=== PATIENT | female | born 1995 | race Caucasian/White ===

== ENCOUNTER 2017-12-12 04:52 | Emergency (ER) | payer OTHER, SELFPAY ==
[2017-12-12 04:55] VITALS: BP 164/99; PULSE 95; RESP 18; TEMP 36.8; O2SAT 97; BMI 46.5
--- NOTE | 2017-12-12 05:04 | CT_ITS ---
STUDY: CT ABDOMEN AND PELVIS WITHOUT CONTRAST REASON FOR EXAM: Female, 22 years old. Left-sided abdominal pain RADIATION DOSAGE (If Supplied By Facility): CTDIvol = ( 23.38 ) mGy, DLP = ( 1273.20 ) mGycm TECHNIQUE: Transaxial 2.5 mm images were obtained from the dome of the diaphragm to the symphysis pubis without oral contrast, and without intravenous contrast. Sagittal and coronal images were reconstructed. This examination is limited for the evaluation of gastrointestinal, solid organs and vascular structures due to the lack of intravenous and oral contrast. There is obesity, the entirety of soft tissue is not imaged. Individualized dose optimization techniques were used for this CT. COMPARISON: None. FINDINGS: The visualized lung bases are unremarkable. The visualized portions of the heart are within normal limits. There is decreased attenuation of the enlarged liver consistent with steatosis. Measures craniocaudal 22 cm, spleen AP 15.3 cm. Normal gallbladder and extrahepatic biliary system. There is mild splenomegaly. Normal pancreas. Normal bilateral adrenal glands. Normal right kidney. Normal left kidney. There is no obstructive uropathy, obstructive renal or ureteral calculi. Normal visualized stomach. Normal small intestine. Decompressed colon. The appendix is visualized and appears normal. Normal abdominal aorta. Normal inferior vena cava. Normal retroperitoneum. Normal urinary bladder. Complex cystic lesion of at least 7.7 x 5.3 x 5.5 cm in midline and right along the right adnexa with a more cystic low-attenuation of 4.3 x 5.3 x 4 cm.. Small uterus may be deviated to the left. What is seen of the adnexal appears hypoattenuated, with cystic lesions seen in the left adnexa. Normal abdominal wall. Normal osseous structures. CT/Abdomen/Pelvis without Cont IMPRESSION: Complex pelvic cystic lesions in midline as well as the left adnexa. Uterus and may be deviated to the left. Further detail with pelvic ultrasound transabdominal and transvaginal approach is recommended as neoplastic etiology cannot be excluded. There is no appendicitis, colitis, diverticulitis, ascites, abscess, collection, perforation or obstruction. Hepatosplenomegaly and hepatic steatosis. Obesity. Electronically Signed: Kina Agarwal MD at 7:07 EDT , Service support ,
[2017-12-12] MEDS: Ondansetron 4 MG/2 ML Vial IV ×2 (05:10→10:35)
[2017-12-12] MEDS: Morphine 4 MG/ML Syringe IV ×2 (05:10→06:38)
[2017-12-12] MEDS: Ketorolac 30 MG/ML Syringe IV (05:10)
[2017-12-12] MEDS: 0.9% Normal Saline 1,000 ML 250 ML IV (05:10)
--- NOTE | 2017-12-12 05:20 | ED.VISSUMM ---
- ER Visit Summary Date of Service: 12/12/17 Chief Complaint: Abdominal pain History of Present Illness: The patient is a [address] Mark Anthony [facility]. She reports that 3:00 this morning she had abrupt onset of left-sided abdominal pain. It is a sharp, cramping pain senna 10 worsening a 10 currently. Is worsened by nothing relieved by nothing. She reports is been nausea and vomited 4 times. No blood or emesis. Last bowel was today. No melena or hematochezia. No dysuria frequency. Last menstrual period was 2-3 weeks ago. No vaginal bleeding or discharge. She denies any flank pain. Physical Examination: Vitals: Stable. Afebrile. General: Well-nourished and well-developed. Head: Normocephalic atraumatic. Neck: Supple, no lymphadenopathy. No JVD. Nontender. Cardiovascular: Regular rate and rhythm. No murmurs. Respiratory: No respiratory distress. Clear to auscultation bilaterally. Abdominal: Soft, mild left upper quadrant and left lower quadrant tenderness to palpation, nondistended, normal bowel sounds. No guarding, rebound, or peritoneal signs. Back: Nontender. No CVA tenderness. Extremities: Nontender, no edema. Skin: Normal color, no rash. Neurologic: Alert and oriented ?3. Cranial nerves II through XII are intact. Normal strength and sensation. Psych: Normal affect. Test Results: test is negative. UA is negative. Clinical Impression(s) from Imaging Studies Abdomen/Pelvis CT 12/12/17 05:04 IMPRESSION: Complex pelvic cystic lesions in midline as well as the left adnexa. Uterus and may be deviated to the left. Further detail with pelvic ultrasound transabdominal and transvaginal approach is recommended as neoplastic etiology cannot be excluded. There is no appendicitis, colitis, diverticulitis, ascites, abscess, collection, perforation or obstruction. Hepatosplenomegaly and hepatic steatosis. Obesity. Electronically Signed: Kina Agarwal MD at 7:07 EDT , Service support , Emergency Department Course and Treatment: Patient had an IV placed. She was given morphine, Toradol, and Zofran IV. She is resting comfortably. Transvaginal ultrasound was ordered to further assess this left adnexal cystic lesion. Treatment Plan: Patient will be turned over the care of the oncoming physician to follow-up on this. She will be instructed to follow-up with Dr. Engel for further evaluation and treatment. Disposition: Pending Impression: 1. Left ovarian cyst. This note was generated with [employer] dictation software. It may contain incorrect words, spelling, and punctuation that were not noted in review of the chart prior to signing ED Disposition - Plan for ED Patient: Chief Complaint: Abd Pain Instructions: ED Cyst Ovarian Referrals: Manisha Clark MD [STAFF PHYSICIAN] -
[2017-12-12 06:03] LABS: Pregnancy, Serum, hCG Quali. NEGATIVE Negative (0-9 Nonpreg)
[2017-12-12 06:21] LABS: Mucous, Urine 0 SEEN /hpf (<or=2+); Red Blood Cells-Urine 0 SEEN /hpf (0-5)
[2017-12-12 06:27] LABS: Color, Urine Yellow (Yellow); Glucose, Dipstick Normal (Normal); Ketone-Dipstick Negative (Negative); Leukocyte Esterase-Dipstick 100 /ul (Negative); Nitrite-Dipstick Negative (Negative); Occult Blood-Urine Negative /ul (Negative); Protein-Dipstick 15 mg/dl (Negative); Specific Gravity, Urine 1.015 (1.002-1.030); Urine Bilirubin Dipstick Negative (Negative); Urine Clarity Clear (Clear); Urine Urobilinogen Normal (Normal); Urine pH 6.5 (5.0 - 8.0)
[2017-12-12 06:35] LABS: Bacteria 1+ /hpf (None Seen); Squamous Epithelial Cells - UA 0-5 SEEN /hpf (5-10); White Blood Cells 0-5 SEEN /hpf (0-5)
--- NOTE | 2017-12-12 07:10 | US_ITS ---
STUDY: ULTRASOUND TRANSVAGINAL CLINICAL: Female, 22 years old. Left lower quadrant pain TECHNIQUE: Transvaginal COMPARISON: CT 12/12/2017 FINDINGS: Normal uterine size measuring 7.1 cm in maximal craniocaudal dimension. There are no myometrial masses. The uterus is deviated towards the left. Normal endometrial thickness measuring 6 mm. There are no endometrial masses, and there is no fluid in the endometrial cavity. Normal uterine cervix. Normal right ovary, measuring 3.2 x 2.7 x 2.1 cm. There are multiple follicles without a dominant cyst. There is a complex mass within the left ovary which extends to the midline. Normal left ovarian tissue is not well visualized. The left ovarian/adnexal mass measures approximately 7.6 x 7.3 x 5 cm. There appears to be a complex cystic component to this region. Question hemorrhagic cyst or endometrioma. There is no internal vascularity. Some flow is seen in the periphery of this lesion. There is a small amount of free fluid within the pelvis. US/Transvaginal Non- IMPRESSION: Large complex left adnexal mass, which is partially cystic. Question hemorrhagic cyst or endometrioma. Due to the size of this lesion, consultation with gynecology is recommended. Electronically Signed: Terrance Riggs DO at 8:52 EDT Tel , Service support ,
--- NOTE | 2017-12-12 09:52 | ED.DEP ---
ED Disposition - Plan for ED Patient: Chief Complaint: Abd Pain Instructions: ED Cyst Ovarian Prescriptions: Oxycodone HCl/Acetaminophen [Percocet 5/325] 1 tab PO Q6H PRN PRN 3 Days #12 tab PRN Reason: Pain Ondansetron [Zofran Odt] 4 mg PO Q8H PRN PRN #10 tab PRN Reason: Nausea Referrals: Manisha Clark MD [STAFF PHYSICIAN] -
== END 2017-12-12 10:37 | disposition home or self-care (01) ==
PROVIDERS: Emergency Medicine; Emergency Provider Emergency Medicine; Family Provider Family Medicine; PCP Family Medicine
DX: N83.202 Unspecified ovarian cyst, left side (principal); Z79.899 Other long term (current) drug therapy
CPT/HCPCS: 74176; 76830; 81001; 84703; 96361; 96374; 96375; 96376; 99283; J7030; J2405

== ENCOUNTER 2017-12-12 11:58 | Day surgery (SDC) | payer OTHER, SELFPAY ==
[2017-12-12] VITALS (9 sets, daily range): BP systolic 133–157; BP diastolic 75–104; PULSE 91–112; RESP 16–18; TEMP 36.3–36.8; O2SAT 92–98; BMI 45.7
[2017-12-12 13:17] LABS: Hematocrit 42.2 % (37-47); Hemoglobin 14.5 g/dl (12.0-15.0); Mean Corp Hgb Conc 34.4 g/gl (32-36); Mean Corpuscular Volume 84.4 fL (81-99); Mean Platelet Vol. 10.7 fl (6.2-12.0); Platelet Count 256 K/mm3 (150-450); RBC Distribution Width CV 13.5 % (11.6-14.6); RBC Distribution Width SD 41.2 fl (35.1-43.9); White Blood Count 11.4 K/mm3 (4.4-11.0)
[2017-12-12 13:18] LABS: Scan Indicated on CBC? Y/N NO
--- NOTE | 2017-12-12 13:21 | DCINST_ITS ---
Discharge Diet: No Restrictions, - - Increase fluid intake for 48 hours. Discharge Activity: Return to Normal Activity, May Drive - when you are no longer taking narcotic pain medications., May Shower, - - Ambulate often the next week after surgery. Return to work on:: 12/19/17 May resume sexual activity in: 4 weeks Lifting Restrictions: 20 Additional Activity Instructions:: Nothing in the vagina for the next 14 days. Call your doctor if your incision/area has: Continuous Slow Oozing, Sudden Increased Bleeding, Increased Pain/ Swelling, Increased Redness, Foul Smelling Discharge, Swelling at the incision site Call your doctor if you observe: Fever of 101 or Higher Cleanse incision/area with: - - skin glue over incisions- do not pick it off. Let soap and water run over incision sites and dab dry. Allergies/Adverse Reactions: Allergies No Known Allergies Allergy (Verified 12/12/17 04:53) Medications to take at Discharge Bupropion HCl [Wellbutrin Sr] 150 mg PO DAILY 12/12/17 Primary Care Physician: Mark Anthony Mandujano MD [Primary Care Provider] - Test Results: Test results from this visit will be discussed in further detail at your follow- up appointment, if applicable. Please Follow Up With: Manisha Clark MD When: 2 weeks- for post op check
--- NOTE | 2017-12-12 13:30 | FALS_PTH ---
PATIENT: ROBE SANCHEZ LOC: [facility] U#:[id number] AGE/SX: 22/ ROOM: RE12/12/[address]: Dr. Manisha Clark, MDDOB: 1995 BED: DIS: 12/12/2017 SPEC #: [id number] RECD: 12/12/17 16:08 STATUS: CONNIE CHASTITY #: [id number] KAIN: 12/12/17 13:[address]: Manisha Clark DEPT: SURGICAL PATHOLOGY RECD BY: Mane Morales ENTERED: 12/13/17 07:07 SP TYPE: FALL TUBES OTHR DR: Dr. Mark Anthony Mandujano MD Tissues: Fallopian tube Procedures: Surgery Specimen Level II HEADER OPERATION: Laparoscopic left salpingo-oophorectomy PRE-OP DIAGNOSIS: Pelvic pain, left ovarian cyst, possible left ovarian torsion TISSUE SUBMITTED: Left tube and ovary MICROSCOPIC DIAGNOSIS Left tube and ovary, salpingo-oophorectomy: Fallopian tube and ovary with extensive congestion and hemorrhage, consistent with clinically impression of ovarian torsion. PAT:natalya 12/14/17 MICROSCOPIC DESCRIPTION Slides are reviewed. GROSS DESCRIPTION Received in fixative is one container labeled with the patient's name and designated left tube and ovary. The specimen consists of a fallopian tube, ovary and blood clots. The fallopian tube measures 5 cm in length and 0.5 to 1 cm in diameter. A detached fragment is noted that appears to consist of fimbrial end. This detached fragment measures 1.5 x 1 x 0.3 cm. Sections of fallopian tube reveal congested and hemorrhagic cut surfaces. The ovary measures 9 x 6.5 x 3.5 cm and weighs 51 gm. The ovary appears to be ruptured at many places. The outer surface is smooth. Sections of the ovary reveal congested and hemorrhagic cut surfaces. A cyst is also noted measuring 5 cm in greatest dimension. The cyst wall do not show any papillation. [email or web address] sections are submitted in five cassettes as follows: 1 ? fallopian tube including fimbrial end, 2-5 ? ovary (cassettes 2 & 3 contain section of the cyst). / Ramya 12/13/17 TC:5 CPT: 24288
--- NOTE | 2017-12-12 15:04 | PCM.OP.BLANK ---
Operative Report Date of Procedure: 12/12/17 Surgeon: Dr. Manisha Granados-Turner [place] Folder: Anita BUTT Preoperative diagnosis: Acute pelvic pain, Ovarian cyst Procedure performed: laparoscopic left salpingoophorectomy, Postoperative diagnosis: Hemoperitoneum, Left ovarian cyst, Left Ovarian torsion complications: none Estimated blood loss: 15cc Drains: none Specimens collected:Left tube, ovary and cyst Findings: large Left ovarian cyst approximately 8cm- ovary and tube appear Necrotic with hematosalpinx and Hemoperitoneum. Right tube and ovary and uterus appear normal - Left adnexa did not regain good blood flow after they were untorsed. Anesthesia: general implantable devices: none Operative note: After informed consent was obtained patient was taken to the operating room she was placed in supine position she was given anesthesia. She was then placed in the [facility] stirrups and she was prepped and draped in normal sterile fashion. Bladder was drained prior to the start of procedure approximately 300 cc of clear yellow urine was expelled. At this time attention was turned to the vaginal portion where weighted speculum placed at posterior fornix vagina single-tooth tenaculum was used to gently grasp the internal the cervix. uterus was gently sounded to approximately 8cm. Uterine manipulator was placed without difficulty. Legs then placed in parallel with the abdomen the tenaculum and the weighted speculum were removed. 2 towel clamps were placed superior to umbilicus. After Marcaine was injected superior to umbilicus a small incision was made and a 5 mm trocar was placed under direct visualization. CO2 gas was used to insufflate the intra-abdominal cavity. Upon inspection large necrotic appearing left ovarian cyst and tube that were torsed - the tube appeared to be fluid filled and distended. At this time then the LLQ and RRLQ ports were placed again Marcaine was injected small incision was made a knife and the 5 mm trocar was placed.at this time the left adnexa was untorsed and time given but tube and ovary did not regain good supply and remained necrotic in appearance. Ligasure was used to coagulate and ligate along IP ligament and uteroovarian ligament- once tube and ovary were freed they were placed in posterior culdesac- umbilical port was converted to 10mm port and EndoCatch bag placed- cyst had to be ruptured to fit in bag- small amount of yellow straw colored fluid and blood were evacuated. at this time the bag was brought to the umbilical incision and incision extended- the cyst was rupture in the bag and removed- the fascia was then reapproximated with 0-vicryl on suture in 3 figure of eight fashion stitches. irrigation of umbilical port was performed prior to its closure. good fascial closure noted. laparoscope was then replaced and good hemostasis was noted and copious irrigation of pelvis was performed. Good hemostasis was appreciated. At this time procedure was deemed complete successful. The gas was desufflated on from the intra-abdominal cavity. The trochars were removed. Skin was closed using 4-0 Monocryl in a subcutaneous fashion. Dermabond glue was placed. Instrument lap and needle counts were correct ?2. The uterine manipulator was removed. Vaginal sweep was performed it was negative. There were no complications anticipated normal postoperative course for this patient.
--- NOTE | 2017-12-12 15:14 | OP.PCM_ITS ---
Operative Report Date of Procedure: 12/12/17 Surgeon: Dr. Manisha Granados-Turner Supervisor Special Education: Anita BUTT Preoperative diagnosis: Acute pelvic pain, Ovarian cyst Procedure performed: laparoscopic left salpingoophorectomy, Postoperative diagnosis: Hemoperitoneum, Left ovarian cyst, Left Ovarian torsion complications: none Estimated blood loss: 15cc Drains: none Specimens collected:Left tube, ovary and cyst Findings: large Left ovarian cyst approximately 8cm- ovary and tube appear Necrotic with hematosalpinx and Hemoperitoneum. Right tube and ovary and uterus appear normal - Left adnexa did not regain good blood flow after they were untorsed. Anesthesia: general implantable devices: none Operative note: After informed consent was obtained patient was taken to the operating room she was placed in supine position she was given anesthesia. She was then placed in the [facility] stirrups and she was prepped and draped in normal sterile fashion. Bladder was drained prior to the start of procedure approximately 300 cc of clear yellow urine was expelled. At this time attention was turned to the vaginal portion where weighted speculum placed at posterior fornix vagina single-tooth tenaculum was used to gently grasp the internal the cervix. uterus was gently sounded to approximately 8cm. Uterine manipulator was placed without difficulty. Legs then placed in parallel with the abdomen the tenaculum and the weighted speculum were removed. 2 towel clamps were placed superior to umbilicus. After Marcaine was injected superior to umbilicus a small incision was made and a 5 mm trocar was placed under direct visualization. CO2 gas was used to insufflate the intra-abdominal cavity. Upon inspection large necrotic appearing left ovarian cyst and tube that were torsed - the tube appeared to be fluid filled and distended. At this time then the LLQ and RRLQ ports were placed again Marcaine was injected small incision was made a knife and the 5 mm trocar was placed.at this time the left adnexa was untorsed and time given but tube and ovary did not regain good supply and remained necrotic in appearance. Ligasure was used to coagulate and ligate along IP ligament and uteroovarian ligament- once tube and ovary were freed they were placed in posterior culdesac- umbilical port was converted to 10mm port and EndoCatch bag placed- cyst had to be ruptured to fit in bag- small amount of yellow straw colored fluid and blood were evacuated. at this time the bag was brought to the umbilical incision and incision extended- the cyst was rupture in the bag and removed- the fascia was then reapproximated with 0- vicryl on suture in 3 figure of eight fashion stitches. irrigation of umbilical port was performed prior to its closure. good fascial closure noted. laparoscope was then replaced and good hemostasis was noted and copious irrigation of pelvis was performed. Good hemostasis was appreciated. At this time procedure was deemed complete successful. The gas was desufflated on from the intra-abdominal cavity. The trochars were removed. Skin was closed using 4 -0 Monocryl in a subcutaneous fashion. Dermabond glue was placed. Instrument lap and needle counts were correct ?2. The uterine manipulator was removed. Vaginal sweep was performed it was negative. There were no complications anticipated normal postoperative course for this patient.
[2017-12-12] MEDS: Bupivacaine Mpf 0.5% 30 ML VIAL (15:15)
[2017-12-12] MEDS: HYDROcodone Bitartrate/Apap 5/325 Tablet PO (17:58)
== END 2017-12-12 19:13 | disposition home or self-care (01) ==
LOC: SDC 12:01 → AC 12:03
PROVIDERS: Family Provider Family Medicine; PCP Family Medicine; Visit Provider Obstetrics & Gynecology
PROC: (CPT 58661; principal; 2017-12-12 07:15)
DX: N83.202 Unspecified ovarian cyst, left side (principal); N83.53 Torsion of ovary, ovarian pedicle and fallopian tube; K66.1 Hemoperitoneum; N83.6 Hematosalpinx; F32.9 Major depressive disorder, single episode, unspecified; Z79.899 Other long term (current) drug therapy
CPT/HCPCS: 58661; 36415; 85027; 88302; J7120; J2405

== ENCOUNTER → 2018-07-31 15:57 | Outpatient (CLI) | payer OTHER, SELFPAY ==
[2018-07-31 18:08] LABS: T4 Free Direct 1.14 ng/dL (0.76-1.46); Thyroid Stim Hormone (TSH) 2.39 uIU/mL (0.358-3.74)
== END ==
PROVIDERS: Family Provider Family Medicine; PCP Family Medicine; Visit Provider Family Medicine
DX: G47.00 Insomnia, unspecified (principal); F32.9 Major depressive disorder, single episode, unspecified
CPT/HCPCS: 36415; 84439; 84443

== ENCOUNTER → 2020-07-11 14:29 | Outpatient (CLI) | payer BC, SELFPAY ==
[2017-12-12 12:29] VITALS: BMI 45.7
[2020-07-11 18:36] LABS: Anion Gap 6 (5-15); BUN 7 mg/dL (7-18); BUN/Creat Ratio 9.2 RATIO (10-20); Chloride 103 mmol/L (98-107); Creatinine, Serum 0.76 mg/dL (0.55-1.02); EST Glomerular Filtration Rate 99 mL/min (>60); Est Glom Filt Rate - Afr Amer 119 mL/min (>60); Glucose 178 mg/dL (74-106); Potassium 3.5 mmol/L (3.5-5.1); Sodium Level 139 mmol/L (136-145); T4 Free Direct 1.08 ng/dL (0.76-1.46); Thyroid Stim Hormone (TSH) 1.48 uIU/mL (0.358-3.74)
== END ==
PROVIDERS: PCP Family Medicine; Visit Provider Family Medicine
DX: F32.9 Major depressive disorder, single episode, unspecified (principal); E66.01 Morbid (severe) obesity due to excess calories
CPT/HCPCS: 36415; 80048; 84439; 84443

== ENCOUNTER → 2021-04-23 20:00 | Outpatient (CLI) | payer BC, SELFPAY | PROVIDERS: PCP Family Medicine; Visit Provider Nurse Practitioner Acute Care | DX: G47.33 Obstructive sleep apnea (adult) (pediatric) (principal) | CPT/HCPCS: 95811 ==

== ENCOUNTER → 2021-05-07 | Outpatient (CLI) | payer BC, SELFPAY | END | disposition home or self-care (01) | PROVIDERS: PCP Family Medicine; Visit Provider Family Medicine | DX: Z20.828 Contact with and (suspected) exposure to other viral communicable diseases (principal) | CPT/HCPCS: 87635; U0003; U0005 ==

== ENCOUNTER 2021-06-18 10:00 | Outpatient (CLI) | payer BC, SELFPAY | END 2021-06-18 23:59 | disposition home or self-care (01) | LOC: SL 10:55 | PROVIDERS: PCP Family Medicine; Visit Provider Nurse Practitioner Acute Care | DX: Z00.00 Encounter for general adult medical examination without abnormal findings (principal) ==

== ENCOUNTER → 2023-03-02 | Outpatient (CLI) | payer OTHER, SELFPAY ==
[2023-03-02 16:01] LABS: Absolute Lymphocyte Count 2.99 X10^3/uL (0.83-4.51); Absolute Neutrophil Count 5.6 X10^3/uL (2.0-7.7); Basophil# 0.04 X10^3/uL; Basophil% 0.4 % (0-1); Eosinophil# 0.19 X10^3/uL; Hematocrit 43.2 % (37-47); Hemoglobin 13.9 g/dL (12.0-15.0); Lymphocyte # 2.99 X10^3/ul (0.83-4.51); Lymphocyte % 31.7 % (19-41); Mean Corp Hgb Conc 32.2 g/dL (32-36); Mean Corpuscular Hgb 27.9 pg (27.0-32.0); Mean Corpuscular Volume 86.7 fL (81-99); Mean Platelet Vol. 10.6 fl (6.2-12.0); Monocyte# 0.48 X10^3/uL; Monocyte% 5.1 % (0-10); NRBC Flagged by Analyzer 0 % (0-5); Neutrophil # 5.58 X10^3/uL (2.7-7.7); Neutrophil % 59.3 % (47-70); Platelet Count 246 K/mm3 (150-450); RBC Distribution Width CV 13.1 % (11.6-14.6); RBC Distribution Width SD 40.6 fl (35.1-43.9); Red Blood Count 4.98 M/mm3 (4.2-5.4); White Blood Count 9.4 K/mm3 (4.4-11.0)
[2023-03-02 16:20] LABS: ALB/GLOB Ratio 0.9 RATIO (0.9-2.4); AST(SGOT) 45 U/L (15-37); Alanine Aminotransfer ALT/SGPT 108 U/L (13-56); Albumin, Serum 3.6 g/dL (3.2-5.0); Alkaline Phosphatase 86 U/L (45-117); Anion Gap 5 (5-15); BUN 9 mg/dL (7-18); BUN/Creat Ratio 13.7 RATIO (10-20); Calcium,Total 9.2 mg/dL (8.5-10.1); Chloride 102 mmol/L (98-107); Cholesterol 171 mg/dL (200); Creatinine, Serum 0.66 mg/dL (0.55-1.02); EST Glomerular Filtration Rate 114 mL/min (>60); Est Glom Filt Rate - Afr Amer 137 mL/min (>60); Globulin 4.2 g/dL (2.2-4.2); Glucose 220 mg/dL (74-106); High Density Lipoprotein 39 mg/dL; Potassium 4.1 mmol/L (3.5-5.1); Protein, Total 7.8 g/dL (6.4-8.2); Sodium Level 137 mmol/L (136-145); Triglycerides 169 mg/dL; Very Low Density Lipoprotein 34 mg/dL (5-40)
== END | disposition home or self-care (01) ==
LOC: BFHLAB 13:49
PROVIDERS: PCP Family Medicine; Visit Provider Nurse Practitioner Family
DX: Z00.01 Encounter for general adult medical examination with abnormal findings (principal); E11.65 Type 2 diabetes mellitus with hyperglycemia
CPT/HCPCS: 36415; 80053; 80061; 85025

== ENCOUNTER → 2024-06-20 | Outpatient (CLI) | payer BC, SELFPAY ==
[2024-06-20 12:43] LABS: Absolute Lymphocyte Count 2.13 X10^3/uL (0.83-4.51); Absolute Neutrophil Count 5.4 X10^3/uL (2.0-7.7); Basophil# 0.03 X10^3/uL; Basophil% 0.4 % (0-1); Eosinophil# 0.12 X10^3/uL; Eosinophils% 1.5 % (0-5); Hematocrit 45.2 % (37-47); Hemoglobin 14.6 g/dL (12.0-15.0); Lymphocyte # 2.13 X10^3/ul (0.83-4.51); Lymphocyte % 25.8 % (19-41); Mean Corp Hgb Conc 32.3 g/dL (32-36); Mean Corpuscular Hgb 27.2 pg (27.0-32.0); Mean Corpuscular Volume 84.2 fL (81-99); Mean Platelet Vol. 10.7 fl (6.2-12.0); Monocyte# 0.52 X10^3/uL; Monocyte% 6.3 % (0-10); NRBC Flagged by Analyzer 0 % (0-5); Neutrophil % 65.2 % (47-70); Platelet Count 263 K/mm3 (150-450); RBC Distribution Width SD 39.5 fl (35.1-43.9); Red Blood Count 5.37 M/mm3 (4.2-5.4); White Blood Count 8.3 K/mm3 (4.4-11.0)
[2024-06-20 13:12] LABS: ALB/GLOB Ratio 0.9 RATIO (0.9-2.4); AST(SGOT) 25 U/L (15-37); Alanine Aminotransfer ALT/SGPT 66 U/L (13-56); Albumin, Serum 3.6 g/dL (3.2-5.0); Alkaline Phosphatase 85 U/L (45-117); Anion Gap 9 (5-15); BUN 8 mg/dL (7-18); BUN/Creat Ratio 11.2 RATIO (10-20); Calcium,Total 9.7 mg/dL (8.5-10.1); Chloride 102 mmol/L (98-107); Cholesterol 211 mg/dL (200); Creatinine, Serum 0.71 mg/dL (0.55-1.02); EST Glomerular Filtration Rate 102 mL/min (>60); Est Glom Filt Rate - Afr Amer 124 mL/min (>60); Glucose 191 mg/dL (74-106); High Density Lipoprotein 44 mg/dL; Potassium 3.8 mmol/L (3.5-5.1); Protein, Total 7.6 g/dL (6.4-8.2); Sodium Level 138 mmol/L (136-145); Triglycerides 177 mg/dL; Very Low Density Lipoprotein 35 mg/dL (5-40)
== END | disposition home or self-care (01) ==
PROVIDERS: PCP Family Medicine; Visit Provider Nurse Practitioner Family
DX: Z00.01 Encounter for general adult medical examination with abnormal findings (principal)
CPT/HCPCS: 36415; 80053; 80061; 85025

== ENCOUNTER → 2024-08-22 | Outpatient (CLI) | payer BC, SELFPAY ==
[2024-08-22 13:55] LABS: Hemoglobin A1c 7.3 % (<=5.6)
== END | disposition home or self-care (01) ==
LOC: BFHLAB 08:57
PROVIDERS: PCP Family Medicine; Visit Provider Nurse Practitioner Family
DX: E11.9 Type 2 diabetes mellitus without complications (principal)
CPT/HCPCS: 36415; 83036